=== PATIENT | male | born 1975 | race African-American/Black ===

== ENCOUNTER 2020-03-25 14:32 | Outpatient (CLI) | payer OTHER ==
--- NOTE | 2020-03-25 16:21 | MRI Report ---
PROCEDURE: Knee LT W/O INDICATIONS: LT KNEE PAIN TECHNIQUE: Noncontrast sagittal PD fast spin echo and T2 fast spin echo with fat saturation, sagittal 3-D spoile d GE with fat saturation; coronal T1 spin echo and PD fast spin echo with fat saturation, and axial P D fast spin echo with fat saturation through the knee. COMPARISON: None. FINDINGS: Image quality: Excellent. Menisci: There is a complex tear of the posterior horn and body of the medial meniscus with a horizo ntal oblique component extending to the inner third of the tibial articular surface as well as a shal low radial component. There is no significant meniscal extrusion. The lateral meniscus is intact. Cruciate ligaments: The anterior and posterior cruciate ligaments appear intact. Medial structures: Mild thickening of the proximal medial collateral ligament is compatible with a r emote prior low-grade sprain. The semimembranosus tendon insertions appear intact. Visualized porti ons of the pes anserinus tendons appear normal. Lateral structures: The lateral collateral ligament, long and short heads of the biceps femoris tend on appear intact. The popliteus tendon appears intact. Iliotibial band appears normal. Anterior structures: The quadriceps and patellar tendons appear intact. Patellar alignment is christa l. No femoral trochlear dysplasia or ventral trochlear prominence. No edema in the infrapatellar fa t pad. Bones and cartilage: No bone marrow contusion or acute fracture. Mild partial thickness cartilage i rregularity is seen in the weightbearing portion of the lateral femoral condyle. The articular cartil ages of the medial and anterior compartments are intact. Joint space and soft tissues: There is a small joint effusion. There is no medial popliteal cyst. N onspecific soft tissue edema is seen in the prepatellar subcutaneous tissues IMPRESSION: 1. Complex tearing of the posterior horn and body of the medial meniscus with horizontal oblique and shallow radial components. No meniscal extrusion. 2. No acute trabecular bone injury. The cruciate ligaments are intact. 3. Chronic low-grade sprain of the proximal medial collateral ligament. 4. 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 5. Small joint effusion. Reviewed by: Yaya Conner MD on 03/25/2020 4:20 PM PST Approved by: Yaya Conner MD on 03/25/2020 4:20 PM PST Station ID: [id number]
== END 2020-03-25 14:33 | disposition home or self-care (01) ==
LOC: DI 14:32
PROVIDERS: ATTEND Nurse Practitioner Family
DX: S83.232A Complex tear of medial meniscus, current injury, left knee, initial encounter (principal); S83.412D Sprain of medial collateral ligament of left knee, subsequent encounter; M94.262 Chondromalacia, left knee; M25.462 Effusion, left knee

== ENCOUNTER 2020-04-26 09:24 | Day surgery (SDC) | payer OTHER ==
[~2020-04-26 09:24] MED LIST: LACTATED RINGERS 1,000 ML IV ONE; ceFAZolin 2 GM/50 ML 2 GM/50 ML BAG IV ONE
--- NOTE | 2020-04-26 10:33 | ANESTHESIA ---
Pre-Anesthesia VS, & Labs - Diagnosis left knee meniscus tear - Procedure left knee arthroscopy, meniscus debridement Vital Signs: Temp Pulse Resp BP Pulse Ox 36.4 C L 82 16 131/85 H 98 04/26/20 09:36 04/26/20 09:36 04/26/20 09:36 04/26/20 09:36 04/26/20 09:36 Height: 5 ft 11 in Weight (kg): 94.8 kg Body Mass Index: 29.1 BMI Classification: Overweight - NPO >8 hours Home Medications and Allergies Home Medications: Ambulatory Orders Atorvastatin [Lipitor] 20 mg PO DAILY PM 04/22/20 Atorvastatin [Lipitor] 20 mg PO DAILY PM 04/22/20 Allergies/Adverse Reactions: Allergies Allergy/AdvReac Type Severity Reaction Status Date / Time No Known Drug Allergies Allergy Verified 04/26/20 09:50 Anes History & Medical History - Anesthetic History Anesthesia Complications: reports: No previous complications - Medical History Cardiovascular: reports: High cholesterol Pulmonary: reports: None Gastrointestinal: reports: None Urinary: reports: None Musculoskeletal: reports: Other Endocrine/Autoimmune: reports: None Skin: reports: None History of Cancer?: No - Surgical History Orthopedic: Arthroscopic surgery Exam General: Alert Dental: WNL Mouth Opening: Greater than 4 Fingerbreadths Mallampati classification: III Thyromental Distance: greater than 6 cm Respiratory: Lungs clear Cardiovascular: Regular rate Plan Anesthesia Type: General Consent for Procedure(s) Verified and Reviewed: Yes Code Status: Attempt Resuscitation ASA classification: 2-Mild systemic disease Is this case an emergency?: No
[2020-04-26] MEDS ORDERED: BUPIVACAINE 0.25% PF 30 ML VIAL ONE (11:47)
[2020-04-26] MEDS ORDERED: EPINEPHrine 1 MG/ML AMP ONE (11:47)
[2020-04-26] MEDS ORDERED: fentaNYL 100 MCG/2 ML VIAL ONE (12:06)
[2020-04-26] MEDS ORDERED: ONDANSETRON 4 MG/2 ML VIAL ONE (12:09)
[2020-04-26] MEDS ORDERED: DEXAMETHASONE 4 MG/ML VIAL ONE (12:09)
[2020-04-26] MEDS ORDERED: EPINEPHrine 1 MG/ML AMP IR ONE (12:27)
[2020-04-26] MEDS ORDERED: fentaNYL 100 MCG/2 ML VIAL IVP PRN (12:31)
[2020-04-26] MEDS ORDERED: ATROPINE ABBOJECT 1 MG/10 ML SYRINGE IVP PRN (12:31)
[2020-04-26] MEDS ORDERED: ONDANSETRON 4 MG/2 ML VIAL IVP PRN ×2 (12:31→12:56)
[2020-04-26] MEDS ORDERED: METOCLOPRAMIDE 10 MG/2 ML VIAL IVP PRN (12:31)
[2020-04-26] MEDS ORDERED: ePHEDrine 50 MG/ML VIAL IVP PRN (12:31)
[2020-04-26] MEDS ORDERED: HYDROmorphone 0.5 MG/0.5 ML SYRINGE IVP PRN (12:31)
[2020-04-26] MEDS ORDERED: MORPHINE 2 MG/ML CARPUJECT IVP PRN (12:31)
[2020-04-26] MEDS ORDERED: NALOXONE 0.4 MG/ML VIAL IVP PRN (12:31)
[2020-04-26] MEDS ORDERED: BUPIVACAINE 0.25% PF 30 ML VIAL SUBQ ONE (12:42)
[2020-04-26] MEDS ORDERED: ePHEDrine 50 MG/ML VIAL IVP ONE (12:47)
[2020-04-26] MEDS ORDERED: LACTATED RINGERS 200 ML IV ONE (12:54)
[2020-04-26] MEDS ORDERED: oxyCODONE 5 MG TABLET PO PRN (12:56)
[2020-04-26] MEDS ORDERED: LACTATED RINGERS 1,000 ML IV SCH (13:00)
--- NOTE | 2020-04-26 13:04 | OPERATIVE REPORT ---
Operative Report - Other Other Information/Narrative: Date of Surgery: 26 April 2020 Pre-Op Diagnosis: Left medial meniscus tear Procedure: Arthroscopic left medial meniscus debridement. Medial plica excision Postop Diagnosis: Same Primary Surgeon: Hal Turk Secondary Surgeon: None Complications: None Tourniquet Time: 25 minutes EBL: 5 cc Indication For Surgery:-44 year-old male with medial sided knee pain and mechanical symptoms after stepping down from a stepladder a few months ago. His pain is not improved with conservative measures and MRI confirmed a medial meniscus tear of the degenerative type. The risks, benefits, and alternatives were discussed. Risks include pain, bleeding, infection, damage to nearby structures and cartilage, lack of symptom relief, need for further surgery, DVT, PE, stroke, and . Written consent was obtained. Examination Under Anesthesia: ROM equal to the contralateral side. Stable dial at 30 & 90 degrees. Stable to varus and valgus stressing at 0 & 30 degrees. Normal Lucila. Normal Pivot shift. No mechanical sensation Arthroscopic Findings: Loose bodies -none Synovium -medial plica was seen and this was taken down Patella cartilage -normal Trochlear cartilage -normal Medial femoral condyle cartilage -normal Medial tibial plateau cartilage -normal for age Medial meniscus -there is a degenerative tear and degeneration of the underside of the medial meniscus posterior horn. The medial meniscus got very thin about 5 mm from the free edge. The thinnest portion was debrided with a biter and a shaver was used to debride all unstable portions. There appears to be some ossification of the posterior tibial plateau cartilage on the underside of the medial meniscus posterior horn Anterior cruciate ligament -normal Posterior cruciate ligament -normal Lateral femoral condyle cartilage -normal Lateral tibial plateau cartilage -grade 1 softening with 1 very small area of grade 2 Lateral meniscus -normal Procedure in Detail: The patient was met in the pre-operative hold area on the day of the procedure. The operative extremity was signed and questions were answered. The patient was brought to the operating room and a general anesthetic was administered. Supine position was used and bony prominences were padded. An examination under anesthesia was performed. Standard prepping and draping was performed. A time out confirmed patient identification, laterality, procedure, allergies, antibiotics, and images. An Esmarch was used to exsanguinate the limb and the tourniquet was elevated to 250 mmHg. A standard diagnostic arthroscopy of the knee was performed through anterolateral and anteromedial portal sites. The anteromedial portal was created under direct visualization after localizing with a spinal needle. The findings can be found above. I then proceeded to use a biter to excise the thinnest portions of the free edge of the meniscus extending back about 5 mm. This portion of the meniscus was extremely thin and could be seen through and was likely not giving any mechanical support. I then used the shaver to smooth out all transition points and to debride the unhealthy portions of the meniscus from the underside. Final images were taken and all arthroscopic fluid and instruments were removed from the knee. The incisions were closed with buried monocryl sutures. Steri strips were applied. 10cc of 0.25% Marcaine without epinephrine was injected near the portal sites. A sterile dressing and compression stocking was placed. The patient was awakened and transferred to recovery in stable condition.
[2020-04-26] MEDS ORDERED: oxyCODONE 5 MG TABLET ONE (13:35)
--- NOTE | 2020-04-26 13:49 | ANESTHESIA POST OP EVALUATION ---
Anesthesia Post Eval - Post Anesthesia Eval Vitals: Last Vital Signs Temp 36.3 C L 04/26/20 13:09 Pulse 86 04/26/20 13:09 Resp 14 04/26/20 13:09 BP 129/79 04/26/20 13:09 Pulse Ox 100 04/26/20 13:09 CV Function Including HR & BP: positive: Stable Pain Control: positive: Satisfactory Nausea & Vomiting: positive: Negative Mental Status: positive: Patient Participates Respiratory Status: Airway Patent Hydration Status: Satisfactory Anesthesia Complications: positive: None
[2020-04-26 14:25] VITALS: BP 126/77
== END 2020-04-26 09:25 | disposition home or self-care (01) ==
LOC: SDS 09:24
PROVIDERS: ATTEND Orthopaedic Surgery
DX: S83.282A Other tear of lateral meniscus, current injury, left knee, initial encounter (principal); M67.52 Plica syndrome, left knee; E66.3 Overweight; Z68.29 Body mass index [BMI] 29.0-29.9, adult
CPT/HCPCS: 29881; A9270; J0690; J7120